=== PATIENT | female | born 1995 | race Two or more races ===

== ENCOUNTER 2018-03-18 09:03 | Emergency (ER) | payer MEDICAID ==
[~2018-03-18] VITALS: Ht 177.8 cm; Wt 75.5 kg
[2018-03-18 10:31] VITALS: BP 127/87
[2018-03-18] MEDS ORDERED: hydrALAzine 20 MG/ML, 1ML IV ONE (11:00)
== END 2018-03-18 10:41 | disposition home or self-care (01) ==
LOC: ED 10:00
DX: F41.1 Generalized anxiety disorder (principal); L40.9 Psoriasis, unspecified
CPT/HCPCS: 93005; 99284

== ENCOUNTER 2018-11-04 08:03 | Emergency (ER) | payer MEDICAID ==
[~2018-11-04] VITALS: Ht 180.3 cm; Wt 86.9 kg
[2018-11-04 09:44] VITALS: BP 129/67
== END 2018-11-04 09:53 | disposition home or self-care (01) ==
LOC: ED 09:02
DX: F41.1 Generalized anxiety disorder (principal)
CPT/HCPCS: 93005; 99284

== ENCOUNTER 2018-12-06 23:11 | Emergency (ER) | payer MEDICAID ==
[~2018-12-06] VITALS: Ht 180.3 cm; Wt 89.9 kg
[2018-12-06 23:13] VITALS: BP 143/92
[2018-12-06] MEDS ORDERED: ONDANSETRON ODT 4 MG ONE (23:48)
[2018-12-06] MEDS ORDERED: DEXAMETHASONE 4 MG TABLET ONE (23:48)
--- NOTE | 2018-12-06 23:51 | NUR ---
PT. MEDICATED PER MAR AND PROVIDED WITH WATER/CRACKERS FOR PO CHALLENGE.
[2018-12-07] MEDS ORDERED: DEXAMETHASONE 4 MG TABLET PO ONE
[2018-12-07] MEDS ORDERED: ONDANSETRON ODT 4 MG PO ONE
== END 2018-12-07 00:11 | disposition home or self-care (01) ==
LOC: ED 23:59
DX: J02.0 Streptococcal pharyngitis (principal); B95.5 Unspecified streptococcus as the cause of diseases classified elsewhere
CPT/HCPCS: 99283; Q0162